=== PATIENT | male | born 1965 | race Caucasian/White ===

== ENCOUNTER 2020-10-27 02:12 | Inpatient (IN) | payer OTHER ==
[~2020-10-27] VITALS: Ht 182.9 cm; Wt 104.9 kg
--- NOTE | 2020-10-27 02:40 | NUR ---
late note documentation to reflect computer downtime pt c/o S/O Sternal CP radiating to L side and down L arm that started at 2300. pt denies SOB but reports thta he is having nausea. no vomiting. pt reports that he has a hx of cardiac stents x2 but states that he does not have a cardioogist and has not seen one in over 10 years since his stents were placed pt is vey restless and flushed. reports that he has been out of his HTN and cholesterol meds x days. pt reports that he is s former smoker and that he still smokes cigars occasionally SO a bedside
--- NOTE | 2020-10-27 02:50 | NUR ---
pt has been medicated per order. medication administration documented on downtime forms
[2020-10-27] MEDS ORDERED: SODIUM CHLORIDE FLUSH 10ML SYR IVF ONE (03:00)
[2020-10-27] MEDS ORDERED: SODIUM CHLORIDE 0.9% 1,000 ML IV ONE (03:00)
[2020-10-27] MEDS ORDERED: ONDANSETRON 2MG/ML, 2ML IVPush ONE (03:00)
[2020-10-27] MEDS ORDERED: MORPHINE SULFATE 4 MG/ML, 1ML IVPush PRN (03:00)
[2020-10-27] MEDS ORDERED: PLEASE ENTER ALLERGIES MC SCH (03:00)
--- NOTE | 2020-10-27 03:00 | NUR ---
Dr. Diamond has been to bedside for eval. pt has been medicated per order. updated on POC
[2020-10-27 03:20] LABS: ANION GAP 6 mmol/L (5-15); CALCIUM 8.9 mg/dL (8.5-10.1); CHLORIDE 109 mmol/L (98-107); CREATININE 1.13 mg/dL (0.7-1.3)
[2020-10-27 03:21] LABS: BASOPHILS % (AUTO) 1 % (0-1); EOSINOPHILS % (AUTO) 1 % (1-7); LYMPHOCYTES % (AUTO) 17 % (22-44); MEAN CORPUSCULAR HEMOGLOBIN 29.1 pg (27.5-34.5); MEAN PLATELET VOLUME 7.6 fL (7.4-10.4); MONOCYTES % (AUTO) 6 % (2-9); NEUTROPHILS % (AUTO) 76 % (42-75); PLATELET COUNT 210 x10^3/uL (130-400); RED BLOOD COUNT 5.61 x10^6/uL (4.38-5.82); RED CELL DISTRIBUTION WIDTH 13.4 % (9.4-14.8)
[2020-10-27 03:24] LABS: TROPONIN I 0.074 ng/mL (0.000-0.045)
[2020-10-27 03:26] LABS: MD NO
[2020-10-27] MEDS ORDERED: MORPHINE SULFATE 4 MG/ML, 1ML ONE (03:42)
--- NOTE | 2020-10-27 03:42 | NUR ---
Spoke with Tia from [facility] as patient has [employer] and Tai has denied patient as needing to be transferred to [facility].
[2020-10-27] MEDS ORDERED: LOSA1TAB19 PO (03:52)
[2020-10-27] MEDS ORDERED: LOVA10TA PO (03:52)
[2020-10-27] MEDS ORDERED: HEPARIN 5,000 UNITS/ML, 1ML IV ONE (04:00)
[2020-10-27] MEDS ORDERED: LABETALOL 5MG/ML, 20ML IVPush ONE (04:00)
[2020-10-27] MEDS ORDERED: HEPARIN 25,000 UNITS/250ML PMX 250 ML IV PRN (04:00)
[2020-10-27] MEDS ORDERED: LABETALOL 5MG/ML, 20ML ONE (04:04)
--- NOTE | 2020-10-27 04:20 | NUR ---
admit orders recieved with bed assignment. pt and SO at bedside updated on POC and current visotr policy attempting to call report
--- NOTE | 2020-10-27 04:26 | NUR ---
report called to Maureen MARIE. recpinkyving RN aware that heparin gtt has not yet been started and agrees to start upon arrival to floor
--- NOTE | 2020-10-27 04:35 | NUR ---
transport has attempted to take pt to inpatient room, but Hospitalist at bedside for eval
[2020-10-27 05:00] VITALS: BP 159/84
[2020-10-27] MEDS ORDERED: ONDANSETRON 2MG/ML, 2ML IVPush PRN (05:00)
[2020-10-27] MEDS ORDERED: HEPARIN 5,000 UNITS/ML, 1ML IV PRN (05:00)
[2020-10-27] MEDS ORDERED: LABETALOL 5MG/ML, 20ML IVPush PRN (05:00)
[2020-10-27] MEDS ORDERED: ASPIRIN 325 MG TABLET EC PO SCH (06:00)
[2020-10-27 06:17] LABS: ALBUMIN 4.1 g/dL (3.4-5.0)
[2020-10-27 06:23] LABS: ALANINE AMINOTRANSFERASE 27 U/L (12-78); ALKALINE PHOSPHATASE 76 U/L (45-117); BILIRUBIN,TOTAL 0.3 mg/dL (0.2-1.0); CHOLESTEROL, TOTAL 160 mg/dL (140-239); HDL CHOL % 25 % (26-37); HDL CHOLESTEROL (DIRECT) 40 mg/dL (40-60); LDL CHOLESTEROL,CALCULATED 83 mg/dL (54-169); LDL/HDL RATIO 2.1 (0.5-3.0); TOTAL PROTEIN 6.9 g/dL (6.4-8.2); TRIGLYCERIDES 183 mg/dL (50-200); VLDL CHOLESTEROL 37 mg/dL (0-25)
[2020-10-27 06:25] LABS: BILIRUBIN, DIRECT < 0.1 mg/dL (0.1-0.2); BILIRUBIN,INDIRECT 0.2 mg/dL (0.0-2.0)
[2020-10-27] MEDS: morphine SULFATE 10 MG/ML, 1ML IV PRN ×3 (06:52→10:51)
[2020-10-27] MEDS: NITROGLYCERIN OINT 2%, 1GM TP SCH ×3 (08:15→19:44)
[2020-10-27 08:19] VITALS: BP 140/80
[2020-10-27] MEDS ORDERED: VERAPAMIL 2.5 MG/ML, 2ML ONE (11:27)
[2020-10-27] MEDS ORDERED: HEPARIN 1,000 UNITS/ML, 10ML ONE (11:27)
[2020-10-27] MEDS ORDERED: BIVALIRUDIN 250 MG ONE ×2 (11:27→12:31)
[2020-10-27] MEDS ORDERED: MIDAZOLAM 1 MG/ML, 5ML ONE (11:27)
[2020-10-27] MEDS ORDERED: FENTANYL PF 100 MCG/2ML ONE (11:27)
[2020-10-27] MEDS ORDERED: LIDOCAINE-MPF 1%, 5ML ONE (11:27)
[2020-10-27] MEDS ORDERED: TICAGRELOR 90 MG TABLET ONE (11:27)
[2020-10-27] MEDS ORDERED: NITROGLYCERIN 5 MG/ML, 10ML ONE (11:28)
[2020-10-27] MEDS ORDERED: DIPHENHYDRAMINE 50 MG/ML, 1ML ONE (12:19)
[2020-10-27] MEDS: SODIUM CHLORIDE 0.9% 1,000 ML IV SCH ×2 (13:00→20:14)
[2020-10-27 14:18] VITALS: BP 112/73
[2020-10-27] MEDS: ACETAMINOPHEN 325 MG TABLET PO PRN (18:08)
[2020-10-27 19:29] VITALS: BP 105/68
[2020-10-27] MEDS: TICAGRELOR 90 MG TABLET PO SCH (20:16)
[2020-10-27] MEDS ORDERED: ATORVASTATIN 80 MG TABLET PO SCH (21:00)
[2020-10-28 01:09] VITALS: BP 111/72
[2020-10-28] MEDS: ACETAMINOPHEN 325 MG TABLET PO PRN (01:14)
[2020-10-28] MEDS: NITROGLYCERIN OINT 2%, 1GM TP SCH ×2 (01:30→08:00)
[2020-10-28] MEDS: SODIUM CHLORIDE 0.9% 1,000 ML IV SCH (05:00)
[2020-10-28 05:30] LABS: BASOPHILS % (AUTO) 0 % (0-1); EOSINOPHILS % (AUTO) 1 % (1-7); LYMPHOCYTES % (AUTO) 24 % (22-44); MEAN CORPUSCULAR HGB CONC 33.7 g/dL (33.2-36.2); MEAN PLATELET VOLUME 7.6 fL (7.4-10.4); MONOCYTES % (AUTO) 7 % (2-9); NEUTROPHILS % (AUTO) 68 % (42-75); PLATELET COUNT 193 x10^3/uL (130-400); RED BLOOD COUNT 5.14 x10^6/uL (4.38-5.82); RED CELL DISTRIBUTION WIDTH 13.7 % (9.4-14.8)
[2020-10-28 05:37] LABS: MD NO
[2020-10-28 05:42] LABS: CHLORIDE 110 mmol/L (98-107)
[2020-10-28 05:52] LABS: ANION GAP 5 mmol/L (5-15); CALCIUM 8.7 mg/dL (8.5-10.1); CREATININE 0.99 mg/dL (0.7-1.3)
[2020-10-28] MEDS ORDERED: ASPIRIN 81 MG TABLET EC PO SCH (06:00)
[2020-10-28] MEDS ORDERED: METOPROLOL SUCCINATE 25 MG TAB.ER.24H PO SCH (06:00)
[2020-10-28] MEDS: TICAGRELOR 90 MG TABLET PO SCH (08:27)
[2020-10-28 08:31] VITALS: BP 130/84
[2020-10-28] MEDS ORDERED: LISINOPRIL 5 MG TABLET PO SCH (09:00)
[2020-10-28] MEDS ORDERED: ATOR-2 PO (12:35)
[2020-10-28] MEDS ORDERED: LISI5TAB7 PO (12:35)
[2020-10-28] MEDS ORDERED: TICA90TA PO (12:35)
[2020-10-28] MEDS ORDERED: ASPI81TA45 PO (12:35)
[2020-10-28] MEDS ORDERED: METO25TA91 PO (12:35)
== END 2020-10-28 13:18 | disposition home or self-care (01) | DRG 247 ==
LOC: ED 02:51 → EDIP 03:31 → 5SO 04:53 → DCLOUNGE 10-28 13:12
PROVIDERS: ADMIT Family Medicine; ATTEND Internal Medicine
PROC: 4A023N7 Measurement of Cardiac Sampling and Pressure, Left Heart, Percutaneous Approach (ICD-10-PCS; principal; 2020-10-27)
PROC: 027135Z Dilation of Coronary Artery, Two Arteries with Two Drug-eluting Intraluminal Devices, Percutaneous Approach (ICD-10-PCS; 2020-10-27)
PROC: B2111ZZ Fluoroscopy of Multiple Coronary Arteries using Low Osmolar Contrast (ICD-10-PCS; 2020-10-27)
PROC: B2151ZZ Fluoroscopy of Left Heart using Low Osmolar Contrast (ICD-10-PCS; 2020-10-27)
DX: I21.4 Non-ST elevation (NSTEMI) myocardial infarction (principal); E11.9 Type 2 diabetes mellitus without complications; E66.9 Obesity, unspecified; E78.5 Hyperlipidemia, unspecified; F17.200 Nicotine dependence, unspecified, uncomplicated; I25.10 Atherosclerotic heart disease of native coronary artery without angina pectoris; I11.0 Hypertensive heart disease with heart failure; Z68.31 Body mass index [BMI] 31.0-31.9, adult; I25.2 Old myocardial infarction; Z82.49 Family history of ischemic heart disease and other diseases of the circulatory system; Z95.5 Presence of coronary angioplasty implant and graft
CPT/HCPCS: 36415; 93458; 96374; 99291; C9600; 71045; 80048; 80061; 80076; 83036; 83735; 83880; 84443; 84484; 85025; 85520; 93005; 93306; 99156; 99157; C1769; C1894; G0378; J0583; J1644; J2250; J3010; C1725; C1874; C1887; J1200; J2270; J7030; Q9967